=== PATIENT | female | born 1945 | race American Indian/Alaskan Native ===

== ENCOUNTER 2017-10-02 10:05 | Emergency (ER) | payer OTHER ==
--- NOTE | 2017-10-02 12:13 | EDM.PDOC ---
ED HPI GENERAL MEDICAL PROBLEM - General Chief Complaint: Upper Extremity Injury/Pain Stated Complaint: [id number] FALL ON MONDAY HIT HEAD AND HIP Time Seen by Provider: 10/02/17 11:55 Source of Information: Reports: Patient History Limitations: Reports: No Limitations - History of Present Illness INITIAL COMMENTS - FREE TEXT/NARRATIVE: This 72 yo female patient reports to the ED due to a fall in her bathtub on Monday (09/29/17). The patient reports she has pain in the back of her head on the right side, generalized neck pain (difficulties turning head), right shoulder pain (with bruising), right hip/bottock pain (with bruising) and left 5th toe pain with bruising. The patient reports she has been taking Tylenol and ibuprofen with some symptom relief from the ibuprofen. The patient reports she called the [facility] today and was advised to come to the emergency department. Onset Date: 09/29/17 Duration: Constant Location: Reports: Head, Neck, Pelvis (right hip and pelvis), Upper Extremity, Right, Lower Extremity, Left Quality: Reports: Ache, Dull Severity: Moderate Improves with: Reports: Rest Worsens with: Reports: Movement Context: Reports: Other (fall into bathtub) Associated Symptoms: Reports: No Other Symptoms - Related Data Allergies Allergy/AdvReac Type Severity Reaction Status Date / Time No Known Allergies Allergy Verified 10/02/17 10:23 Home Meds: Home Meds Ascorbate Calcium [Vitamin C] 500 mg PO DAILY 10/02/17 [History] Calcium Carbonate [Calcium] 500 mg PO DAILY 10/02/17 [History] Insulin Aspart [Novolog Flexpen] 5 units SQ TID 10/02/17 [History] Insulin Detemir [Levemir] 20 units SQ BEDTIME 10/02/17 [History] Lisinopril 2.5 mg PO DAILY 10/02/17 [History] Multivitamin [Multivitamins] 1 tab PO DAILY 10/02/17 [History] Pravastatin [Pravachol] 20 mg PO BEDTIME 10/02/17 [History] metFORMIN HCl [Metformin HCl] 2,000 mg PO BEDTIME 10/02/17 [History] Past Medical History HEENT History: Reports: Cataract, Glaucoma, Impaired Vision Other HEENT History: beginning of cataracts and glaucoma. 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 Cardiovascular Surgical History: Reports: None GI Surgical History: Reports: Cholecystectomy, EGD Female Surgical History: Reports: None Social & Family History - Tobacco Use Smoking Status *Q: Never Smoker Second Hand Smoke Exposure: No Review of Systems - Review of Systems Review Of Systems: ROS reveals no pertinent complaints other than HPI. ED EXAM, GENERAL - Physical Exam Exam: See Below Exam Limited By: No Limitations General Appearance: Alert, WD/WN, Moderate Distress Eye Exam: Bilateral Eye: EOMI, Normal Inspection, PERRL Ears: Normal External Exam, Normal Canal, Hearing Grossly Normal, Normal TMs Nose: Normal Inspection, Normal Mucosa, No Blood Throat/Mouth: Normal Inspection, Normal Lips, Normal Teeth, Normal Gums, Normal Oropharynx, Normal Voice, No Airway Compromise Head: Atraumatic, Normocephalic Neck: Limited Range of Motion (due to lateral neck pain), Tender Lateral Respiratory/Chest: No Respiratory Distress, Lungs Clear, Normal Breath Sounds, No Accessory Muscle Use, Chest Non-Tender Cardiovascular: Normal Peripheral Pulses, Regular Rate, Rhythm, No Edema, No Gallop, No JVD, No Murmur, No Rub GI/Abdominal: Normal Bowel Sounds, Soft, Non-Tender, No Organomegaly, No Distention, No Abnormal Bruit, No Mass (Female) Exam: Deferred Rectal (Female) Exam: Deferred Back Exam: Normal Inspection, Full Range of Motion, NT Extremities: Arm Pain (right shoulder with bruising ), Leg Pain (right hip ( bruising to the buttocks) and left 5th toe pain (bruising)) Neurological: Alert, Oriented, CN II-XII Intact, Normal Cognition, Normal Gait, Normal Reflexes, No Motor/Sensory Deficits Psychiatric: Normal Affect, Normal Mood Skin Exam: Warm, Dry, Intact, No Rash Lymphatic: No Adenopathy Course - Vital Signs Last Recorded V/S: Last Vital Signs Temp 36.6 C 10/02/17 10:19 Pulse 72 10/02/17 10:19 Resp 16 10/02/17 10:19 BP 128/57 L 10/02/17 10:19 Pulse Ox 99 10/02/17 10:19 - Orders/Labs/Meds Orders: Active Orders 24 hr Category Date Time Status Ibuprofen [Motrin] Med 10/02/17 14:03 Once 400 mg PO ONETIME ONE Departure - Departure Time of Disposition: 14:07 Disposition: Home, Self-Care 01 Condition: Fair Clinical Impression: Fall Qualifiers: Encounter type: initial encounter Qualified Code(s): W19.XXXA - Unspecified fall, initial encounter Neck muscle strain Qualifiers: Encounter type: initial encounter Qualified Code(s): S16.1XXA - Strain of muscle, fascia and tendon at neck level, initial encounter Contusion of hip, right Qualifiers: Encounter type: initial encounter Qualified Code(s): S70.01XA - Contusion of right hip, initial encounter Contusion of right shoulder Qualifiers: Encounter type: initial encounter Qualified Code(s): S40.011A - Contusion of right shoulder, initial encounter Contusion of fifth toe, left Qualifiers: Encounter type: initial encounter Qualified Code(s): S90.122A - Contusion of left lesser toe(s) without damage to nail, initial encounter - Discharge Information *PRESCRIPTION DRUG MONITORING PROGRAM REVIEWED*: Not Applicable *COPY OF PRESCRIPTION DRUG MONITORING REPORT IN PATIENT VICKI: Not Applicable Instructions: Contusion, [id number]-mk-[id number], Cervical Sprain, [id number] Forms: ED Department Discharge Care Plan Goals: The patient was advised of the examination, lab, x-ray and CT results during the visit. The patient was given an oral dose of ibuprofen while in the ED. The patient was encouraged to rest and allow her body to heal. If the patient has any additional symptoms or concerns, the patient should visit her primary care facility or return to the emergency department. - My Orders Last 24 Hours: My Active Orders 10/02/17 14:03 Ibuprofen [Motrin] 400 mg PO ONETIME ONE - Assessment/Plan Last 24 Hours: My Active Orders 10/02/17 14:03 Ibuprofen [Motrin] 400 mg PO ONETIME ONE
--- NOTE | 2017-10-02 12:48 | CR ---
Clinical history: 72-year-old female injured fall. Interpretation: 3 views right shoulder confirm some elevation of the humeral head relative to glenoid scapular suggesting rotator cuff impingement or tear. No juxta-articular rotator cuff tendon calcifi cations. Chronic reactive arthritic changes ipsilateral acromioclavicular joint. No sign of acute right shoulder fracture, acromioclavicular separation or glenohumeral dislocation. Underlying right lung apex is clear. No rib fractures. CONCLUSION: No right shoulder fracture or dislocation.
--- NOTE | 2017-10-02 12:54 | CT ---
CLINICAL HISTORY: 72-year-old 170 pound diabetic female injured in fall. SCAN TECHNIQUE: Volume acquisition of data from an emergency unenhanced CT scan cervical spine obtain ed while the patient was lying supine on the Siemens multislice scanner [place], [place]. All data archived in the PACS system for storage, reformatting axial/sagittal/cor onal planes and study. INTERPRETATION: Multilevel mid/lower cervical disc disease, i.e., interspace narrowing with hypertrophic marginal and uncinate spur formation particularly prominent C4-5, C5-6, C6-C7 levels (osteoarthritis). No sign of prevertebral soft tissue swelling, cervical fracture, spondylolisthesis, or jumped locked facets. Dense facet sclerosis. No fractures of the first 2 cervical ribs. Lung apices clear.
--- NOTE | 2017-10-02 12:55 | CR ---
CLINICAL HISTORY: 72-year-old female injured in fall. INTERPRETATION: AP lateral views left foot confirms early arthritic changes first metatarsophalangeal and all interph alangeal/DIP joints. Pes cavus and small heel spur at the insertion plantar aponeurosis base of the os calcis. (Arteriovascular calcifications in the soft tissues) No sign of left foot fracture or dislocation.
--- NOTE | 2017-10-02 12:56 | CT ---
CLINICAL HISTORY: 72-year-old female injured fall. SCAN TECHNIQUE: Volume acquisition of data from an emergency unenhanced CT scan of the head and brain obtained while the patient was lying supine on the Siemens multislice scanner [place], [place]. All data archived in the PACS system for storage, reformatting axial/sagit ny/coronal planes and study. INTERPRETATION: 1. Uniformly thick bony calvarium without sign of skull fracture, underlying brain contusion or epidu ral/subdural hematoma. 2. Symmetric clear pneumatization of the mastoid and paranasal sinuses. No foreign bodies or fracture s. 3. Symmetric menard-white matter pattern and underlying mirror-image normal ventricular system. Mild at rophy. 4. Some microvascular ischemic changes particularly periventricular white matter right cerebral hemis phere. No encephalomalacia. 5. No sign of acute intracerebral/intraventricular/subarachnoid hemorrhage. 6. Cerebellum and brainstem unremarkable (physiologic midline falcine/pineal and symmetric choroid pl exus calcifications). CONCLUSION: No sign of skull fracture or closed head injury.
--- NOTE | 2017-10-02 12:57 | CR ---
CLINICAL HISTORY: 72-year-old female injured in a fall (right hip pain). INTERPRETATION: AP pelvis/hips and AP/frog lateral views of the right hip confirm chronic severe lowe r lumbar disc disease with associated reactive arthritic change. No sign of pelvic or either hip fracture/dislocation (dense arteriovascular calcifications). Symmetric spacing normal-appearing SI and hip joints without arthritic degenerative change. No foreign bodies. CONCLUSION: Abnormal lower lumbar disc disease. No fracture pelvis or either hip.
[2017-10-02] MEDS ORDERED: Ibuprofen 400 MG Tab PO ONE (14:03)
== END 2017-10-02 14:20 | disposition home or self-care (01) ==
LOC: DL.ED 10:05
DX: S40.011A Contusion of right shoulder, initial encounter (principal); S90.122A Contusion of left lesser toe(s) without damage to nail, initial encounter; S30.0XXA Contusion of lower back and pelvis, initial encounter; S70.01XA Contusion of right hip, initial encounter; E11.9 Type 2 diabetes mellitus without complications; W19.XXXA Unspecified fall, initial encounter; Z79.4 Long term (current) use of insulin
CPT/HCPCS: 70450; 72125; 73030; 73502; 73620; 99284; A9270

== ENCOUNTER 2019-08-03 11:02 | Emergency (ER) | payer BC, OTHER ==
--- NOTE | 2019-08-03 14:48 | EDM.PDOC ---
Scribed by Dai Romero 08/03/19 1223 for Delgado Gracia NP ED HPI GENERAL MEDICAL PROBLEM - General Chief Complaint: Lower Extremity Injury/Pain Stated Complaint: SWOLLEN KNEE/? INFECTION Time Seen by Provider: 08/03/19 11:22 Source of Information: Reports: Patient, RN, RN Notes Reviewed History Limitations: Reports: No Limitations - History of Present Illness INITIAL COMMENTS - FREE TEXT/NARRATIVE: A 74-year-old female who presents to the ER for left knee and ankle evaluation. Patient reports she had a knee injury 1 week ago and was seen at [facility] 4 days ago. Injuries of her knee revealed a fracture in the patella bone. Patient also had a bruise on the affected knee and was treated with Keflex to prevent cellulitis. The knee was also wrapped and patient was told to elevate the knee when sleeping or lying down. She states that she has taken the antibiotics for 2 days and applied Bacitracin ointment. She reports that she does not feel like it is helping but her pain has gotten significantly better. She was given [place] at [facility] but she is not currently taking it as she is not in that much pain. No recent injury, pain or trauma to the knee. She also adds that she has been on her feet for the last couple of days trying to set for her niece. She also reports ankle swelling. No known triggers. No drainage or warmth noted on the left knee. She has already taken antibiotics for 3 days. Onset Date: 07/27/19 Duration: Getting Worse Location: Reports: Lower Extremity, Left Quality: Reports: Ache Severity: Moderate Improves with: Reports: None Worsens with: Reports: None Associated Symptoms: Reports: No Other Symptoms - Related Data Allergies Allergy/AdvReac Type Severity Reaction Status Date / Time No Known Allergies Allergy Verified 08/03/19 11:10 Home Meds: Home Meds Ascorbate Calcium [Vitamin C] 500 mg PO DAILY 10/02/17 [History] Calcium Carbonate [Calcium] 500 mg PO DAILY 10/02/17 [History] Insulin Aspart [Novolog Flexpen] 5 units SQ TID 10/02/17 [History] Insulin Detemir [Levemir] 20 units SQ BEDTIME 10/02/17 [History] Lisinopril 2.5 mg PO DAILY 10/02/17 [History] Multivitamin [Multivitamins] 1 tab PO DAILY 10/02/17 [History] Pravastatin [Pravachol] 20 mg PO BEDTIME 10/02/17 [History] metFORMIN HCl [Metformin HCl] 1,000 mg PO BID 10/02/17 [History] Past Medical History HEENT History: Reports: Cataract, Glaucoma, Impaired Vision Other HEENT History: beginning of cataracts and glaucoma. 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 Cardiovascular Surgical History: Reports: None GI Surgical History: Reports: Cholecystectomy, EGD Female Surgical History: Reports: None Social & Family History - Tobacco Use Smoking Status *Q: Never Smoker Second Hand Smoke Exposure: No - Caffeine Use Caffeine Use: Reports: None - Recreational Drug Use Recreational Drug Use: No Review of Systems - Review of Systems Review Of Systems: Comprehensive ROS is negative, except as noted in HPI. ED EXAM, GENERAL - Physical Exam Exam: See Below Exam Limited By: No Limitations General Appearance: Alert, WD/WN, No Apparent Distress Respiratory/Chest: No Respiratory Distress, Lungs Clear, Normal Breath Sounds, No Accessory Muscle Use, Chest Non-Tender Cardiovascular: Normal Peripheral Pulses, Regular Rate, Rhythm, No Edema, No Gallop, No JVD, No Murmur, No Rub Extremities: Limited Range of Motion, Other (left knee moderately swollen with mild bruising and abrasion noted. No warmth or drainage noted. Mild edema noted on the ankle. ) Neurological: Alert, Oriented, CN II-XII Intact, Normal Cognition, Abnormal Gait Psychiatric: Normal Affect, Normal Mood Skin Exam: Warm, Intact Course - Vital Signs Last Recorded V/S: Last Vital Signs Temp 98.6 F 08/03/19 11:18 Pulse 74 06/27/20 11:18 Resp 16 08/03/19 11:18 BP 154/74 H 08/03/19 11:18 Pulse Ox 96 08/03/19 11:18 - Re-Assessments/Exams Free Text/Narrative Re-Assessment/Exam: 08/03/19 14:46 Reviewed exam and findings with patient. Applied Arnulfo wrap on her knee. Patient reports that is exactly what she was looking for. Encouraged her to finish antibiotics and follow up with Ortho on Monday as scheduled. Patient instructions included on discharge. Symptoms to return to ER reviewed the patient. Departure - Departure Time of Disposition: 11:47 Disposition: Home, Self-Care 01 Condition: Good Clinical Impression: Right knee injury, Cellulitis of right knee - Discharge Information *PRESCRIPTION DRUG MONITORING PROGRAM REVIEWED*: Not Applicable *COPY OF PRESCRIPTION DRUG MONITORING REPORT IN PATIENT VICKI: Not Applicable Instructions: Acute Knee Pain, Adult, Cellulitis, Adult, [id number] Referrals: Nicola Recinos MD [Primary Care Provider] - Forms: ED Department Discharge Additional Instructions: Elevate affected knee when sitting, lying or sleeping. Ice every 20 minutes an hour. Follow up with Ortho on Monday as scheduled. finish antibiotic treatment. Apply ointment on knee as prescribed. Follow up with PCP. Sepsis Event Note (ED) - Evaluation Sepsis Screening Result: No Definite Risk - Focused Exam Vital Signs: Vital Signs Temp Pulse Resp BP Pulse Ox 08/03/19 11:18 98.6 F 74 16 154/74 H 96 I have read and agree with the documentation that has been completed regarding this visit. By signing this record, I attest that the documentation was completed in my physical presence and is an accurate record of the encounter.
== END 2019-08-03 12:03 | disposition home or self-care (01) ==
LOC: DL.ED 11:02
DX: S80.01XA Contusion of right knee, initial encounter (principal); L03.115 Cellulitis of right lower limb; E11.42 Type 2 diabetes mellitus with diabetic polyneuropathy; Z86.73 Personal history of transient ischemic attack (TIA), and cerebral infarction without residual deficits; Z79.4 Long term (current) use of insulin; Z79.899 Other long term (current) drug therapy; X58.XXXA Exposure to other specified factors, initial encounter
CPT/HCPCS: 99283

== ENCOUNTER 2019-10-25 09:44 | Emergency (ER) | payer BC, OTHER ==
[2019-10-25 10:31] LABS: CHLORIDE,CL 99 mmol/L (98-107); SODIUM,NA 136 mmol/L (136-145)
[2019-10-25] MEDS ORDERED: GI Cocktail Oral Solution 30 ML PO ONE (10:45)
--- NOTE | 2019-10-25 10:55 | CR ---
PROCEDURE INFORMATION: Exam: XR Chest, 1 View Exam date and time: 10/25/2019 10:42 AM Age: 74 years old Clinical indication: Chest pain TECHNIQUE: Imaging protocol: XR of the chest Views: 1 view. COMPARISON: No relevant prior studies available. FINDINGS: Lungs: There are no acute infiltrates.There is focal prominent right infrahilar density that may represent pulmonary vascularity. Pleural space: No pleural effusion. No pneumothorax. Heart/Mediastinum: The mediastinal contour is normal. The cardiac structures are normal. Bones/joints: The skeletal structures and soft tissues show no evidence of fracture or other acute processes. IMPRESSION: 1. No acute infiltrates. 2. Focal right infrahilar prominent density. Summation vascular density versus nodule. Recommend PA lateral two-view chest for further characterization.
--- NOTE | 2019-10-25 12:34 | CR ---
EXAMINATION: Chest 2V SEX: Female AGE: 74 years CLINICAL HISTORY: 74-year-old female with SHORTNESS OF BREATH AND CHEST PAIN reported to have "focal right infrahilar density" on AP film. Reevaluate please. (No older films for comparison) Interpretation: Superimposition vascular shadows right hilum i.e. normal variant. Normal cardiac silhouette. No vascular congestion, cephalization of flow, alveolar edema or pleural effusion. No parenchymal lung nodule or mass lesion. No hilar/mediastinal lymphadenopathy (normal tracheobronchial airway). No infiltrate, atelectasis or pneumothorax.
--- NOTE | 2019-10-25 12:51 | EDM.PDOC ---
ED HPI GENERAL MEDICAL PROBLEM - General Chief Complaint: Chest Pain Stated Complaint: CHEST PAIN SHORTNESS OF BREATH Time Seen by Provider: 10/25/19 10:20 Source of Information: Reports: Patient, RN, RN Notes Reviewed History Limitations: Reports: No Limitations - History of Present Illness INITIAL COMMENTS - FREE TEXT/NARRATIVE: Patient presents to ER with complaint of chest pains and shortness of breath for greater than 1 week. Patient states she did have COVID the end of August/beginning of September. She did quarantining in [place], as that is where she recently moved from. States her recently , she recently moved back home, and has had quite a bit of stress. Patient states the pain does not radiate anywhere, just up the chest. Shortness of breath is intermittent. Patient states this happens frequently after eating a meal. Patient denies any other recent illness. States last bowel movement was today, fluctuates between normal and loose stools. Onset: Gradual - Related Data Allergies Allergy/AdvReac Type Severity Reaction Status Date / Time No Known Allergies Allergy Verified 08/03/19 11:10 Home Meds: Home Meds Ascorbate Calcium [Vitamin C] 500 mg PO DAILY 10/02/17 [History] Calcium Carbonate [Calcium] 500 mg PO DAILY 10/02/17 [History] Insulin Aspart [Novolog Flexpen] 5 units SQ TID 10/02/17 [History] Insulin Detemir [Levemir] 20 units SQ BEDTIME 10/02/17 [History] Lisinopril 2.5 mg PO DAILY 10/02/17 [History] Multivitamin [Multivitamins] 1 tab PO DAILY 10/02/17 [History] Pravastatin [Pravachol] 20 mg PO BEDTIME 10/02/17 [History] metFORMIN HCl [Metformin HCl] 1,000 mg PO BID 10/02/17 [History] Past Medical History HEENT History: Reports: Cataract, Glaucoma, Impaired Vision Other HEENT History: beginning of cataracts and glaucoma. 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 Cardiovascular Surgical History: Reports: None GI Surgical History: Reports: Cholecystectomy, EGD Female Surgical History: Reports: None Social & Family History - Caffeine Use Caffeine Use: Reports: None ED ROS GENERAL - Review of Systems Review Of Systems: Comprehensive ROS is negative, except as noted in HPI. ED EXAM, GENERAL - Physical Exam Exam: See Below Exam Limited By: No Limitations General Appearance: Alert, WD/WN, Mild Distress Eye Exam: Bilateral Eye: EOMI, Normal Inspection Ears: Normal External Exam, Hearing Grossly Normal Nose: Normal Inspection Throat/Mouth: Normal Inspection Head: Atraumatic, Normocephalic Neck: Normal Inspection, Supple, Non-Tender, Full Range of Motion Respiratory/Chest: No Respiratory Distress, Lungs Clear, Normal Breath Sounds, No Accessory Muscle Use, Chest Non-Tender, Decreased Breath Sounds Cardiovascular: Normal Peripheral Pulses, Regular Rate, Rhythm, No Edema, No Gallop, No JVD, No Murmur, No Rub Peripheral Pulses: 2+: Radial (L), Radial (R) GI/Abdominal: Normal Bowel Sounds, Soft, Tender (epigastric) (Female) Exam: Deferred Rectal (Female) Exam: Deferred Back Exam: Normal Inspection, Full Range of Motion, NT Extremities: Normal Inspection, Normal Range of Motion, Non-Tender, Normal Capil augustus Refill, No Pedal Edema Neurological: Alert, Oriented, CN II-XII Intact, Normal Cognition, Normal Gait, Normal Reflexes, No Motor/Sensory Deficits Psychiatric: Normal Affect, Normal Mood Skin Exam: Warm, Dry, Intact, Normal Color, No Rash Lymphatic: No Adenopathy Course - Vital Signs Last Recorded V/S: Last Vital Signs Temp 97.1 F 10/25/19 10:10 Pulse 69 10/25/19 10:10 Resp 16 10/25/19 10:10 BP 119/55 L 10/25/19 10:10 Pulse Ox 99 10/25/19 10:10 - Orders/Labs/Meds Orders: Active Orders 24 hr Category Date Time Status EKG Documentation Completion [RC] STAT Care 10/25/19 09:50 Active Labs: Laboratory Tests 10/25/19 10/25/19 10/25/19 Range/Units 10:03 10:03 10:03 WBC 5.8 (5.0-10.0) 10^3/uL RBC 4.64 (4.2-5.4) 10^6/uL Hgb 12.6 (12.0-16.0) g/dL Hct 37.6 (37.0-47.0) % MCV 81.0 (80-100) fL MCH 27.2 (27.0-34.0) pg MCHC 33.5 (33.0-35.0) g/dL Plt Count 248 (150-450) 10^3/uL Neut % (Auto) 64.7 (42.2-75.2) % Lymph % (Auto) 23.6 (20.5-50.1) % [place] % (Auto) 7.4 (2-8) % Eos % (Auto) 3.4 H (1.0-3.0) % Baso % (Auto) 0.9 (0.0-1.0) % PT 9.7 (9.0-12.0) SEC INR 1.0 (0.9-1.2) Sodium 136 (136-145) mmol/L Potassium 4.0 (3.5-5.1) mmol/L Chloride 99 (98-107) mmol/L Carbon Dioxide 30 (21-32) mmol/L Anion Gap 11.0 (7-13) mEq/L BUN 12 (7-18) mg/dL Creatinine 0.76 (0.55-1.02) mg/dL Est Cr Clr Drug Dosing TNP Estimated GFR (MDRD) > 60 BUN/Creatinine Ratio 15.8 (No establ ref range) Glucose 106 H (74-99) mg/dL Calcium 9.2 (8.5-10.1) mg/dL Total Bilirubin 0.5 (0.2-1.0) mg/dL AST 14 L (15-37) U/L ALT 23 (14-59) U/L Alkaline Phosphatase 72 (46-116) U/L Troponin I < 0.017 (0.000-0.056) ng/mL B-Natriuretic Peptide 10 (0-100) pg/ml Total Protein 7.6 (6.4-8.2) g/dL Albumin 3.5 (3.4-5.0) g/dL Globulin 4.1 Albumin/Globulin Ratio 0.9 Meds: Medications Discontinued Medications Generic Name Dose Route Start Last Admin Trade Name Freq PRN Reason Stop Dose Admin Al Hydroxide/Mg Hydroxide 30 ml 10/25/19 10:45 10/25/19 11:18 Gi Cocktail PO 10/25/19 10:46 30 ml ONETIME ONE Administration Departure - Departure Time of Disposition: 12:50 Disposition: Home, Self-Care 01 Reason for Transfer *Q: Other Condition: Good Clinical Impression: GERD (gastroesophageal reflux disease) Qualifiers: Esophagitis presence: esophagitis presence not specified Qualified Code(s): K21.9 - Gastro-esophageal reflux disease without esophagitis Instructions: Indigestion, [id number], Food Choices for Gastroesophageal Reflux Disease, Adult, [id number], Heartburn, Grla-po-[id number] Forms: ED Department Discharge Additional Instructions: RX: Omeprazole Drink plenty of water Follow up with your primary care provider next week Sepsis Event Note (ED) - Evaluation Sepsis Screening Result: No Definite Risk - Focused Exam Vital Signs: Vital Signs Temp Pulse Resp BP Pulse Ox 10/25/19 10:10 97.1 F 69 16 119/55 L 99 - My Orders Last 24 Hours: My Active Orders 10/25/19 09:50 EKG Documentation Completion [RC] STAT - Assessment/Plan Last 24 Hours: My Active Orders 10/25/19 09:50 EKG Documentation Completion [RC] STAT
== END 2019-10-25 12:50 | disposition home or self-care (01) ==
LOC: DL.ED 09:44
DX: K21.9 Gastro-esophageal reflux disease without esophagitis (principal); E11.40 Type 2 diabetes mellitus with diabetic neuropathy, unspecified; Z86.73 Personal history of transient ischemic attack (TIA), and cerebral infarction without residual deficits; Z79.4 Long term (current) use of insulin; Z79.899 Other long term (current) drug therapy
CPT/HCPCS: 36415; 71045; 71046; 80053; 83880; 84484; 85025; 85610; 93005; 99283; A9270; 99285-25

== ENCOUNTER 2019-12-25 20:14 | Emergency (ER) | payer BC, OTHER ==
--- NOTE | 2019-12-25 20:14 | EDM.PDOC ---
ED HPI GENERAL MEDICAL PROBLEM - General Stated Complaint: AMBULANCE Time Seen by Provider: 12/25/19 20:14 Source of Information: Reports: Patient, EMS History Limitations: Reports: No Limitations - History of Present Illness INITIAL COMMENTS - FREE TEXT/NARRATIVE: Recent UTI on Cipro, palpitations tonight. BP elevated for EMS. Patient concerned, Has meals delivered and they sit outside apartment door until she gets home, Noticed something black on her vegetables tonight, did not look like spice. Worried neighbor who does meth may have put something on her food. No fever or cough no nausea vomiting or flank pain. Hx Covid in september. Initial BP elevated 180's by EMS. - Related Data Allergies Allergy/AdvReac Type Severity Reaction Status Date / Time No Known Allergies Allergy Verified 12/25/19 20:30 Home Meds: Home Meds Ascorbate Calcium [Vitamin C] 500 mg PO DAILY 10/02/17 [History] Insulin Aspart [Novolog Flexpen] 5 units SQ TID 10/02/17 [History] Insulin Detemir [Levemir] 20 units SQ BEDTIME 10/02/17 [History] Lisinopril 2.5 mg PO DAILY 10/02/17 [History] Multivitamin [Multivitamins] 1 tab PO DAILY 10/02/17 [History] Pravastatin [Pravachol] 20 mg PO BEDTIME 10/02/17 [History] metFORMIN HCl [Metformin HCl] 500 mg PO DAILY 10/02/17 [History] Ciprofloxacin HCl [Cipro] 500 mg PO BID 12/25/19 [History] Pantoprazole Sodium [Protonix] 40 mg PO DAILY 12/25/19 [History] Past Medical History HEENT History: Reports: Cataract, Glaucoma, Impaired Vision Other HEENT History: beginning of cataracts and glaucoma. 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 Cardiovascular Surgical History: Reports: None GI Surgical History: Reports: Cholecystectomy, EGD Female Surgical History: Reports: None Social & Family History - Family History Family Medical History: No Pertinent Family History - Caffeine Use Caffeine Use: Reports: None ED ROS GENERAL - Review of Systems Review Of Systems: Comprehensive ROS is negative, except as noted in HPI. ED EXAM, GENERAL - Physical Exam Exam: See Below Exam Limited By: No Limitations General Appearance: Alert, Anxious Eye Exam: Bilateral Eye: EOMI Ears: Normal External Exam, Normal TMs Nose: Normal Inspection Throat/Mouth: Normal Inspection Head: Atraumatic, Normocephalic Neck: Normal Inspection Respiratory/Chest: No Respiratory Distress, Lungs Clear Cardiovascular: Normal Peripheral Pulses, Regular Rate, Rhythm, No Edema GI/Abdominal: Normal Bowel Sounds, Soft Neurological: Alert, Oriented, Normal Cognition Psychiatric: Normal Affect, Anxious Skin Exam: Warm, Dry, Intact Course - Vital Signs Last Recorded V/S: Last Vital Signs Temp 97.4 F 12/25/19 20:14 Pulse 87 12/25/19 20:14 Resp 18 12/25/19 20:14 BP 150/67 H 12/25/19 20:14 Pulse Ox 97 12/25/19 20:14 - Orders/Labs/Meds Orders: Active Orders 24 hr Category Date Time Status AMPHETAMINES, CONF, UR Urgent Lab 12/25/19 20:23 Received Labs: Laboratory Tests 12/25/19 12/25/19 12/25/19 Range/Units 20:23 20:23 20:48 WBC 4.8 L (5.0-10.0) 10^3/uL RBC 4.52 (4.2-5.4) 10^6/uL Hgb 12.4 (12.0-16.0) g/dL Hct 36.9 L (37.0-47.0) % MCV 81.6 (80-100) fL MCH 27.4 (27.0-34.0) pg MCHC 33.6 (33.0-35.0) g/dL Plt Count 282 (150-450) 10^3/uL Neut % (Auto) 49.7 (42.2-75.2) % Lymph % (Auto) 32.7 (20.5-50.1) % [place] % (Auto) 7.8 (2-8) % Eos % (Auto) 9.2 H (1.0-3.0) % Baso % (Auto) 0.6 (0.0-1.0) % Sodium (136-145) mmol/L Potassium (3.5-5.1) mmol/L Chloride (98-107) mmol/L Carbon Dioxide (21-32) mmol/L Anion Gap (7-13) mEq/L BUN (7-18) mg/dL Creatinine (0.55-1.02) mg/dL Est Cr Clr Drug Dosing mL/min Estimated GFR (MDRD) BUN/Creatinine Ratio (No establ ref range) Glucose (74-99) mg/dL Calcium (8.5-10.1) mg/dL Total Bilirubin (0.2-1.0) mg/dL AST (15-37) U/L ALT (14-59) U/L Alkaline Phosphatase (46-116) U/L Troponin I (0.000-0.056) ng/mL Total Protein (6.4-8.2) g/dL Albumin (3.4-5.0) g/dL Globulin Albumin/Globulin Ratio Urine Color Light yellow (YELLOW) Urine Appearance Clear (CLEAR) Urine pH 7.0 (5.0-9.0) Ur Specific [place] 1.015 (1.005-1.030) Urine Protein Negative (NEGATIVE) Urine Glucose (UA) 250 H (NEGATIVE) Urine Ketones Negative (NEGATIVE) Urine Occult Blood Trace-intact H (NEGATIVE) Urine Nitrite Negative (NEGATIVE) Urine Bilirubin Negative (NEGATIVE) Urine Urobilinogen 0.2 (0.2-1.0) mg/dL Ur Leukocyte Esterase Trace H (NEGATIVE) Urine RBC 0-5 /HPF Urine WBC 0-5 (0-5/HPF) /HPF Ur Epithelial Cells Rare (NOT SEEN) /HPF Amorphous Sediment Rare (NOT SEEN) /HPF Urine Bacteria Rare (0-FEW/HPF) /HPF Urine Mucus Rare (NOT SEEN) /LPF Urine Opiates Screen Negative (NEGATIVE) Ur Oxycodone Screen Negative (NEGATIVE) Urine Methadone Screen Negative (NEGATIVE) Ur Barbiturates Screen Negative (NEGATIVE) U Tricyclic Antidepress Negative (NEGATIVE) Ur Phencyclidine Scrn Negative (NEGATIVE) Ur Amphetamine Screen Positive H (NEGATIVE) U Methamphetamines Scrn Negative (NEGATIVE) Urine MDMA Screen Negative (NEGATIVE) U Benzodiazepines Scrn Negative (NEGATIVE) Urine Cocaine Screen Negative (NEGATIVE) U Marijuana (THC) Screen Negative (NEGATIVE) 12/25/19 Range/Units 20:48 WBC (5.0-10.0) 10^3/uL RBC (4.2-5.4) 10^6/uL Hgb (12.0-16.0) g/dL Hct (37.0-47.0) % MCV (80-100) fL MCH (27.0-34.0) pg MCHC (33.0-35.0) g/dL Plt Count (150-450) 10^3/uL Neut % (Auto) (42.2-75.2) % Lymph % (Auto) (20.5-50.1) % [place] % (Auto) (2-8) % Eos % (Auto) (1.0-3.0) % Baso % (Auto) (0.0-1.0) % Sodium 133 L (136-145) mmol/L Potassium 3.8 (3.5-5.1) mmol/L Chloride 96 L (98-107) mmol/L Carbon Dioxide 28 (21-32) mmol/L Anion Gap 12.8 (7-13) mEq/L BUN 12 (7-18) mg/dL Creatinine 0.90 (0.55-1.02) mg/dL Est Cr Clr Drug Dosing 50.09 mL/min Estimated GFR (MDRD) > 60 BUN/Creatinine Ratio 13.3 (No establ ref range) Glucose 216 H (74-99) mg/dL Calcium 8.7 (8.5-10.1) mg/dL Total Bilirubin 0.4 (0.2-1.0) mg/dL AST 19 (15-37) U/L ALT 33 (14-59) U/L Alkaline Phosphatase 94 (46-116) U/L Troponin I < 0.017 (0.000-0.056) ng/mL Total Protein 7.2 (6.4-8.2) g/dL Albumin 3.2 L (3.4-5.0) g/dL Globulin 4.0 Albumin/Globulin Ratio 0.80 Urine Color (YELLOW) Urine Appearance (CLEAR) Urine pH (5.0-9.0) Ur Specific [place] (1.005-1.030) Urine Protein (NEGATIVE) Urine Glucose (UA) (NEGATIVE) Urine Ketones (NEGATIVE) Urine Occult Blood (NEGATIVE) Urine Nitrite (NEGATIVE) Urine Bilirubin (NEGATIVE) Urine Urobilinogen (0.2-1.0) mg/dL Ur Leukocyte Esterase (NEGATIVE) Urine RBC /HPF Urine WBC (0-5/HPF) /HPF Ur Epithelial Cells (NOT SEEN) /HPF Amorphous Sediment (NOT SEEN) /HPF Urine Bacteria (0-FEW/HPF) /HPF Urine Mucus (NOT SEEN) /LPF Urine Opiates Screen (NEGATIVE) Ur Oxycodone Screen (NEGATIVE) Urine Methadone Screen (NEGATIVE) Ur Barbiturates Screen (NEGATIVE) U Tricyclic Antidepress (NEGATIVE) Ur Phencyclidine Scrn (NEGATIVE) Ur Amphetamine Screen (NEGATIVE) U Methamphetamines Scrn (NEGATIVE) Urine MDMA Screen (NEGATIVE) U Benzodiazepines Scrn (NEGATIVE) Urine Cocaine Screen (NEGATIVE) U Marijuana (THC) Screen (NEGATIVE) Departure - Departure Time of Disposition: 21:27 Disposition: Home, Self-Care 01 Condition: Good Clinical Impression: Palpitations, Positive urine drug screen Instructions: Palpitations, [id number] Referrals: PCP,None [Primary Care Provider] - Forms: ED Department Discharge Additional Instructions: Light diet continue home medications Discuss concerns regarding laced food with law enforcement do not eat food that has been setting out for hours and unattended Confirmation of urine is pending, follow up if any change in symptoms Sepsis Event Note (ED) - Focused Exam Vital Signs: Vital Signs Temp Pulse Resp BP Pulse Ox 12/25/19 20:14 97.4 F 87 18 150/67 H 97 - My Orders Last 24 Hours: My Active Orders 12/25/19 20:23 AMPHETAMINES, CONF, UR Urgent - Assessment/Plan Last 24 Hours: My Active Orders 12/25/19 20:23 AMPHETAMINES, CONF, UR Urgent
[2019-12-25 21:14] LABS: ANION GAP 12.8 mEq/L (7-13); CHLORIDE,CL 96 mmol/L (98-107); SODIUM,NA 133 mmol/L (136-145)
== END 2019-12-25 21:50 | disposition home or self-care (01) ==
LOC: DL.ED 20:14
DX: R00.2 Palpitations (principal); R82.5 Elevated urine levels of drugs, medicaments and biological substances; E11.40 Type 2 diabetes mellitus with diabetic neuropathy, unspecified; Z86.73 Personal history of transient ischemic attack (TIA), and cerebral infarction without residual deficits; Z79.4 Long term (current) use of insulin; Z79.899 Other long term (current) drug therapy
CPT/HCPCS: 36415; 80053; 80305-QW; 81001; 84484; 85025; 93005; 99285-25; G0480

== ENCOUNTER 2020-03-26 11:28 | Emergency (ER) | payer BC, OTHER ==
[2020-03-26 12:10] LABS: ANION GAP 12.9 mEq/L (7-13); CHLORIDE,CL 100 mmol/L (98-107); SODIUM,NA 138 mmol/L (136-145)
[2020-03-26] MEDS ORDERED: Iopamidol 755 Mg/ML 100 ML Bottle IVPUSH ONE (12:21)
--- NOTE | 2020-03-26 14:19 | CT ---
EXAMINATION: Chest w Cont SEX: Female AGE: 74 years CLINICAL HISTORY: 74-year-old 186 pound diabetic female with history of COVID19 infection and subsequent vaccination (2 shots). Chest pain. Serum D dimer 412. Scan technique: Volume acquisition of data from the chest (bony thorax, lungs and mediastinum) obtained during the intravenous administration of 69 cc nonionic Isovue 370 contrast at 4 cc/s via injector (PE protocol) while patient was lying on on the Siemens multislice scanner [place], [place]. All data archived in the PACS system for storage, reformatting axial/sagittal/coronal planes and study (lung/mediastinal/vascular and bone windows). Interpretation: Negative exam. 1. No intraluminal filling defects or thrombus identified in the pulmonary artery circulation. 2. No focal lobar oligemia, atelectasis/collapse or peripheral pleural-based wedge shaped infarcts ([place] sign). 3. No pleural effusions. 4. Normal cardiac silhouette. No pericardial effusion, pulmonary vascular congestion, cephalization flow, alveolar edema. 5. No lung mass or hilar/mediastinal lymphadenopathy. 6. Calcifications normal caliber thoracic aorta. Osteoporosis. Multilevel disc disease and hypertrophic spondylosis. 7. No alveolar consolidation, air bronchograms, or peripheral interstitial "groundglass" lung densities. 8. No pneumothorax or pneumomediastinum. Midline tracheobronchial airway unremarkable. 9. Unenhanced upper abdominal viscera unremarkable. Diverticulosis both flexures of the colon.
--- NOTE | 2020-03-26 14:23 | EDM.PDOC ---
ED HPI GENERAL MEDICAL PROBLEM - General Chief Complaint: Chest Pain Stated Complaint: AMBULANCE Time Seen by Provider: 03/26/20 11:30 Source of Information: Reports: Patient, EMS, EMS Notes Reviewed, RN, RN Notes Reviewed History Limitations: Reports: No Limitations - History of Present Illness INITIAL COMMENTS - FREE TEXT/NARRATIVE: Patient is a 74-year-old female who presents to ER per [facility] from [facility] with complaint of chest pain that began at 6 AM. Patient states the pain began in the left shoulder and later went down into the left side of the chest. She was at work, did leave work and went to the clinic. She states it started with the pain in the left shoulder, increased chest heaviness, and some increased shortness of breath. Patient states she did have Covid in August, and has also had 2 vaccinations for Covid. Patient was somewhat hypertensive initially 170s over 80s, and sometimes would go down to 136/70. Patient is 98% on room air, and afebrile. [facility] reports some mild respiratory distress. Upon arrival to the ER patient denies respiratory distress. Patient appears to be breathing adequately. She states she does have some issues with anxiety. States she also has some bladder discomfort, which she has had for some time. Last had a UTI in February. Patient has history of DM 2 and hypertension. Onset: Today, Sudden - Related Data Allergies Allergy/AdvReac Type Severity Reaction Status Date / Time No Known Allergies Allergy Verified 03/26/20 11:10 Home Meds: Home Meds Ascorbate Calcium [Vitamin C] 500 mg PO DAILY 10/02/17 [History] Insulin Aspart [Novolog Flexpen] 5 units SQ TID 10/02/17 [History] Insulin Detemir [Levemir] 20 units SQ BEDTIME 10/02/17 [History] Lisinopril 2.5 mg PO DAILY 10/02/17 [History] Multivitamin [Multivitamins] 1 tab PO DAILY 10/02/17 [History] Pravastatin [Pravachol] 20 mg PO BEDTIME 10/02/17 [History] metFORMIN HCl [Metformin HCl] 500 mg PO DAILY 10/02/17 [History] Ciprofloxacin HCl [Cipro] 500 mg PO BID 12/25/19 [History] Pantoprazole Sodium [Protonix] 40 mg PO DAILY 12/25/19 [History] Past Medical History HEENT History: Reports: Cataract, Glaucoma, Impaired Vision Other HEENT History: beginning of cataracts and glaucoma. 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 Cardiovascular Surgical History: Reports: None GI Surgical History: Reports: Cholecystectomy, EGD Female Surgical History: Reports: None Social & Family History - Family History Family Medical History: No Pertinent Family History - Tobacco Use Tobacco Use Status *Q: Never Tobacco User - Caffeine Use Caffeine Use: Reports: Coffee - Recreational Drug Use Recreational Drug Use: No ED ROS GENERAL - Review of Systems Review Of Systems: Comprehensive ROS is negative, except as noted in HPI. ED EXAM, GENERAL - Physical Exam Exam: See Below Exam Limited By: No Limitations General Appearance: Alert, WD/WN, No Apparent Distress, Anxious Eye Exam: Bilateral Eye: EOMI, Normal Inspection Ears: Normal External Exam, Hearing Grossly Normal Nose: Normal Inspection Throat/Mouth: Normal Inspection, Normal Lips, Normal Teeth, Normal Gums, Normal Oropharynx, Normal Voice, No Airway Compromise Head: Atraumatic, Normocephalic Neck: Normal Inspection, Supple, Non-Tender, Full Range of Motion Respiratory/Chest: No Respiratory Distress, Lungs Clear, Normal Breath Sounds, No Accessory Muscle Use, Chest Non-Tender Cardiovascular: Normal Peripheral Pulses, Regular Rate, Rhythm, No Edema, No Gallop, No JVD, No Murmur, No Rub Peripheral Pulses: 2+: Radial (L), Radial (R) GI/Abdominal: Normal Bowel Sounds, Soft, Non-Tender (Female) Exam: Deferred Rectal (Female) Exam: Deferred Back Exam: Normal Inspection, Full Range of Motion, NT Extremities: Normal Inspection, Normal Range of Motion, Non-Tender, No Pedal Edema, Normal Capillary Refill, Limited Range of Motion (Right shoulder) Neurological: Alert, Oriented, CN II-XII Intact, Normal Cognition, Normal Gait, Normal Reflexes, No Motor/Sensory Deficits Psychiatric: Normal Affect, Normal Mood, Anxious Skin Exam: Warm, Dry, Intact, Normal Color, No Rash Lymphatic: No Adenopathy Course - Vital Signs Last Recorded V/S: Last Vital Signs Temp 97.6 F 03/26/20 11:11 Pulse 72 03/26/20 11:11 Resp 11 L 03/26/20 11:11 BP 157/69 H 03/26/20 11:11 Pulse Ox 97 03/26/20 11:11 - Orders/Labs/Meds Orders: Active Orders 24 hr Category Date Time Status EKG Documentation Completion [RC] STAT Care 03/26/20 10:49 Active EKG Documentation Completion [RC] STAT Care 03/26/20 14:21 Active Labs: Laboratory Tests 03/26/20 03/26/20 03/26/20 Range/Units 11:07 11:07 11:07 PT 9.4 (9.0-12.0) SEC INR 1.0 (0.9-1.2) D-Dimer, Quantitative 412 H (0-400) ng/mL Sodium (136-145) mmol/L Potassium (3.5-5.1) mmol/L Chloride (98-107) mmol/L Carbon Dioxide (21-32) mmol/L Anion Gap (7-13) mEq/L BUN (7-18) mg/dL Creatinine (0.55-1.02) mg/dL Est Cr Clr Drug Dosing mL/min Estimated GFR (MDRD) BUN/Creatinine Ratio (No establ ref range) Glucose (74-99) mg/dL Calcium (8.5-10.1) mg/dL Total Bilirubin (0.2-1.0) mg/dL AST (15-37) U/L ALT (14-59) U/L Alkaline Phosphatase (46-116) U/L Troponin I < 0.017 (0.000-0.056) ng/mL B-Natriuretic Peptide 22 (0-100) pg/ml Total Protein (6.4-8.2) g/dL Albumin (3.4-5.0) g/dL Globulin Albumin/Globulin Ratio 03/26/20 03/26/20 Range/Units 11:07 14:29 PT (9.0-12.0) SEC INR (0.9-1.2) D-Dimer, Quantitative (0-400) ng/mL Sodium 138 (136-145) mmol/L Potassium 3.9 (3.5-5.1) mmol/L Chloride 100 (98-107) mmol/L Carbon Dioxide 29 (21-32) mmol/L Anion Gap 12.9 (7-13) mEq/L BUN 15 (7-18) mg/dL Creatinine 0.67 (0.55-1.02) mg/dL Est Cr Clr Drug Dosing 67.29 mL/min Estimated GFR (MDRD) > 60 BUN/Creatinine Ratio 22.4 (No establ ref range) Glucose 142 H (74-99) mg/dL Calcium 9.8 (8.5-10.1) mg/dL Total Bilirubin 0.4 (0.2-1.0) mg/dL AST 14 L (15-37) U/L ALT 31 (14-59) U/L Alkaline Phosphatase 70 (46-116) U/L Troponin I < 0.017 (0.000-0.056) ng/mL B-Natriuretic Peptide (0-100) pg/ml Total Protein 7.7 (6.4-8.2) g/dL Albumin 3.5 (3.4-5.0) g/dL Globulin 4.2 Albumin/Globulin Ratio 0.8 Meds: Medications Discontinued Medications Generic Name Dose Route Start Last Admin Trade Name Freq PRN Reason Stop Dose Admin Iopamidol 100 ml 03/26/20 12:21 03/26/20 12:54 Isovue-370 (76%) IVPUSH 03/26/20 12:22 69 ml ONETIME ONE Administration - Radiology Interpretation Free Text/Narrative:: Chest x-ray completed at [facility]: No evidence of acute cardiopulmonary disease. Chest CT with contrast: No intraluminal filling defects or thrombus identified in the pulmonary artery circulation. No focal lumbar Hugo ischemia, atelectasis/collapse or peripheral pleural-based wedge-shaped infarcts, [place] sign. No pleural effusions. Normal cardiac silhouette. No pericardial effusion, pulmonary vascular congestion, cephalization of flow, alveolar edema. No lung mass or hilar/mediastinal lymphadenopathy. Calcifications normal caliber thoracic aorta. Osteoporosis. Negative exam See radiologist report Departure - Departure Time of Disposition: 15:13 Disposition: Home, Self-Care 01 Reason for Transfer *Q: Other Condition: Good Clinical Impression: Nonspecific chest pain UTI (urinary tract infection) Qualifiers: Urinary tract infection type: acute cystitis Hematuria presence: without hematuria Qualified Code(s): N30.00 - Acute cystitis without hematuria Instructions: Urinary Tract Infection, Adult, [id number], Nonspecific Chest Pain, Adult, [id number] Forms: ED Department Discharge Additional Instructions: Follow-up at [facility] for possible referral to cardiology May use Tylenol as directed for pain Return to the ER with any worsening of symptoms Rx: Macrobid Sepsis Event Note (ED) - Evaluation Sepsis Screening Result: No Definite Risk - Focused Exam Vital Signs: Vital Signs Temp Pulse Resp BP Pulse Ox 03/26/20 11:11 97.6 F 72 11 L 157/69 H 97 - My Orders Last 24 Hours: My Active Orders 03/26/20 10:49 EKG Documentation Completion [RC] STAT 03/26/20 14:21 EKG Documentation Completion [RC] STAT - Assessment/Plan Last 24 Hours: My Active Orders 03/26/20 10:49 EKG Documentation Completion [RC] STAT 03/26/20 14:21 EKG Documentation Completion [RC] STAT
[2020-03-26] MEDS ORDERED: Nitrofurantoin Monohydrate/Macrocrystalline 100 MG Cap PO ONE (15:17)
== END 2020-03-26 15:25 | disposition home or self-care (01) ==
LOC: DL.ED 11:28
DX: R07.9 Chest pain, unspecified (principal); N30.00 Acute cystitis without hematuria; E11.42 Type 2 diabetes mellitus with diabetic polyneuropathy; Z86.73 Personal history of transient ischemic attack (TIA), and cerebral infarction without residual deficits; Z79.4 Long term (current) use of insulin; Z79.899 Other long term (current) drug therapy
CPT/HCPCS: 36415; 71260; 80053; 83880; 84484; 85379; 85610; 93005; 99285; A9270; Q9967; 99283

== ENCOUNTER 2020-10-26 20:48 | Emergency (ER) | payer BC, OTHER ==
[2020-10-26] MEDS ORDERED: Nitroglycerin 0.4 MG Tab.SL SL ONE (21:15)
[2020-10-26] MEDS ORDERED: Aspirin 81 MG Tab.Chew PO ONE (21:15)
--- NOTE | 2020-10-26 21:51 | CR ---
PROCEDURE INFORMATION: Exam: XR Chest Exam date and time: 10/26/2020 9:20 PM Age: 75 years old Clinical indication: Pain; Left-sided; Additional info: Chest pain TECHNIQUE: Imaging protocol: XR of the chest. Views: 1 view. COMPARISON: CR Chest 2V 10/25/2019 11:48 AM FINDINGS: Lungs: Unremarkable. No consolidation. Pleural spaces: Unremarkable. No pleural effusion. No pneumothorax. Heart/Mediastinum: Unremarkable. No cardiomegaly. Bones/joints: Unremarkable. IMPRESSION: No acute findings.
[2020-10-26 22:05] LABS: ANION GAP 12.7 mEq/L (7-13)
--- NOTE | 2020-10-27 00:23 | EDM.PDOC ---
ED HPI GENERAL MEDICAL PROBLEM - General Chief Complaint: Chest Pain Stated Complaint: AMBULANCE Time Seen by Provider: 10/26/20 21:20 Source of Information: Reports: Patient History Limitations: Reports: No Limitations - History of Present Illness INITIAL COMMENTS - FREE TEXT/NARRATIVE: Onset chest pain 630, [place] SOB. Prior was hurrying sweeping and cleaning porch. Went to eat at local food place and felt ches tightness and weak like when blood sugars low. Did not have meter to check Blood sugar. Feels anxious and pain may just be from that. Worse with movement. Non smoker, no cough. Points midsternal. sternal Pain Score (Numeric/FACES): 4 - Related Data Allergies Allergy/AdvReac Type Severity Reaction Status Date / Time No Known Allergies Allergy Verified 10/26/20 21:24 Home Meds: Home Meds Ascorbate Calcium [Vitamin C] 500 mg PO DAILY 10/02/17 [History] Insulin Aspart [Novolog Flexpen] 5 units SQ TID 10/02/17 [History] Insulin Detemir [Levemir] 10 units SQ BEDTIME 10/02/17 [History] Lisinopril 2.5 mg PO DAILY 10/02/17 [History] Multivitamin [Multivitamins] 1 tab PO DAILY 10/02/17 [History] Pravastatin [Pravachol] 20 mg PO BEDTIME 10/02/17 [History] Pantoprazole Sodium [Protonix] 40 mg PO DAILY 12/25/19 [History] Semaglutide [Ozempic] 0.5 mg SQ Q7D 10/26/20 [History] Past Medical History HEENT History: Reports: Cataract, Glaucoma, Impaired Vision Other HEENT History: beginning of cataracts and glaucoma. 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 Cardiovascular Surgical History: Reports: None GI Surgical History: Reports: Cholecystectomy, EGD Female Surgical History: Reports: None Social & Family History - Family History Family Medical History: No Pertinent Family History - Tobacco Use Tobacco Use Status *Q: Never Tobacco User - Caffeine Use Caffeine Use: Reports: Coffee - Recreational Drug Use Recreational Drug Use: No ED ROS GENERAL - Review of Systems Review Of Systems: Comprehensive ROS is negative, except as noted in HPI. ED EXAM, GENERAL - Physical Exam Exam: See Below Exam Limited By: No Limitations General Appearance: Alert, Anxious Eye Exam: Bilateral Eye: EOMI Ears: Normal External Exam Nose: Normal Inspection, Normal Mucosa Throat/Mouth: Normal Inspection, Normal Lips, Normal Voice, No Airway Compromise Head: Atraumatic, Normocephalic Neck: Normal Inspection, Non-Tender Respiratory/Chest: No Respiratory Distress, Lungs Clear, Normal Breath Sounds Cardiovascular: Normal Peripheral Pulses, Regular Rate, Rhythm, No Edema GI/Abdominal: Normal Bowel Sounds, Soft, Non-Tender Back Exam: Normal Inspection Extremities: Normal Inspection Neurological: Alert, Oriented, Normal Cognition Psychiatric: Anxious Skin Exam: Warm, Dry, Intact, Normal Color #1 Interpretation EKG Date: 10/26/20 Time: 21:13 Rhythm: NSR Rate (Beats/Min): 83 [place]: Normal P-Wave: Present QRS: Normal ST-T: Normal Comparison: NA - No Prior EKG Course - Vital Signs Last Recorded V/S: Last Vital Signs Temp 97.8 F 10/26/20 21:16 Pulse 91 10/26/20 21:16 Resp 13 10/26/20 21:16 BP 116/58 L 10/26/20 21:35 Pulse Ox 97 10/26/20 21:16 - Orders/Labs/Meds Labs: Laboratory Tests 10/26/20 10/26/20 10/26/20 Range/Units 20:56 21:36 21:36 WBC 5.8 (5.0-10.0) 10^3/uL RBC 4.15 L (4.2-5.4) 10^6/uL Hgb 11.4 L (12.0-16.0) g/dL Hct 33.8 L (37.0-47.0) % MCV 81.4 (80-100) fL MCH 27.5 (27.0-34.0) pg MCHC 33.7 (33.0-35.0) g/dL Plt Count 254 (150-450) 10^3/uL Neut % (Auto) 62.3 (42.2-75.2) % Lymph % (Auto) 23.0 (20.5-50.1) % [place] % (Auto) 7.3 (2-8) % Eos % (Auto) 7.1 H (1.0-3.0) % Baso % (Auto) 0.3 (0.0-1.0) % PT 10.0 (9.0-12.0) SEC INR 1.0 (0.9-1.2) D-Dimer, Quantitative 360 (0-400) ng/mL Sodium (136-145) mmol/L Potassium (3.5-5.1) mmol/L Chloride (98-107) mmol/L Carbon Dioxide (21-32) mmol/L Anion Gap (7-13) mEq/L BUN (7-18) mg/dL Creatinine (0.55-1.02) mg/dL Est Cr Clr Drug Dosing mL/min Estimated GFR (MDRD) BUN/Creatinine Ratio (No establ ref range) Glucose (70-99) mg/dL Lactic Acid (0.4-2.0) mmol/L Calcium (8.5-10.1) mg/dL Magnesium (1.8-2.4) mg/dL Total Bilirubin (0.2-1.0) mg/dL AST (15-37) U/L ALT (14-59) U/L Alkaline Phosphatase (46-116) U/L Troponin I High Sens (<=51) pg/mL Total Protein (6.4-8.2) g/dL Albumin (3.4-5.0) g/dL Globulin Albumin/Globulin Ratio Urine Color Yellow (YELLOW) Urine Appearance Clear (CLEAR) Urine pH 7.0 (5.0-9.0) Ur Specific [place] 1.015 (1.005-1.030) Urine Protein 30 H (NEGATIVE) Urine Glucose (UA) Negative (NEGATIVE) Urine Ketones Negative (NEGATIVE) Urine Occult Blood Negative (NEGATIVE) Urine Nitrite Negative (NEGATIVE) Urine Bilirubin Negative (NEGATIVE) Urine Urobilinogen 0.2 (0.2-1.0) mg/dL Ur Leukocyte Esterase Negative (NEGATIVE) Urine RBC 0-5 (0-5) /HPF Urine WBC 0-5 (0-5/HPF) /HPF Ur Epithelial Cells Rare (NOT SEEN) /HPF Amorphous Sediment Few (NOT SEEN) /HPF Urine Bacteria Rare (0-FEW/HPF) /HPF Urine Mucus Not seen (NOT SEEN) /LPF 10/26/20 10/26/20 10/26/20 Range/Units 21:36 21:36 23:25 WBC (5.0-10.0) 10^3/uL RBC (4.2-5.4) 10^6/uL Hgb (12.0-16.0) g/dL Hct (37.0-47.0) % MCV (80-100) fL MCH (27.0-34.0) pg MCHC (33.0-35.0) g/dL Plt Count (150-450) 10^3/uL Neut % (Auto) (42.2-75.2) % Lymph % (Auto) (20.5-50.1) % [place] % (Auto) (2-8) % Eos % (Auto) (1.0-3.0) % Baso % (Auto) (0.0-1.0) % PT (9.0-12.0) SEC INR (0.9-1.2) D-Dimer, Quantitative (0-400) ng/mL Sodium 134 L (136-145) mmol/L Potassium 3.7 (3.5-5.1) mmol/L Chloride 99 (98-107) mmol/L Carbon Dioxide 26 (21-32) mmol/L Anion Gap 12.7 (7-13) mEq/L BUN 12 (7-18) mg/dL Creatinine 1.12 H (0.55-1.02) mg/dL Est Cr Clr Drug Dosing 40.45 mL/min Estimated GFR (MDRD) 48 BUN/Creatinine Ratio 10.7 (No establ ref range) Glucose 187 H (70-99) mg/dL Lactic Acid 3.1 H* (0.4-2.0) mmol/L Calcium 8.7 (8.5-10.1) mg/dL Magnesium 1.5 L (1.8-2.4) mg/dL Total Bilirubin 0.4 (0.2-1.0) mg/dL AST 13 L (15-37) U/L ALT 22 (14-59) U/L Alkaline Phosphatase 49 (46-116) U/L Troponin I High Sens 4 5 (<=51) pg/mL Total Protein 7.1 (6.4-8.2) g/dL Albumin 3.2 L (3.4-5.0) g/dL Globulin 3.9 Albumin/Globulin Ratio 0.82 Urine Color (YELLOW) Urine Appearance (CLEAR) Urine pH (5.0-9.0) Ur Specific [place] (1.005-1.030) Urine Protein (NEGATIVE) Urine Glucose (UA) (NEGATIVE) Urine Ketones (NEGATIVE) Urine Occult Blood (NEGATIVE) Urine Nitrite (NEGATIVE) Urine Bilirubin (NEGATIVE) Urine Urobilinogen (0.2-1.0) mg/dL Ur Leukocyte Esterase (NEGATIVE) Urine RBC (0-5) /HPF Urine WBC (0-5/HPF) /HPF Ur Epithelial Cells (NOT SEEN) /HPF Amorphous Sediment (NOT SEEN) /HPF Urine Bacteria (0-FEW/HPF) /HPF Urine Mucus (NOT SEEN) /LPF Meds: Medications Discontinued Medications Generic Name Dose Route Start Last Admin Trade Name Freq PRN Reason Stop Dose Admin Aspirin 324 mg 10/26/20 21:15 10/26/20 21:34 Aspirin 81 Mg Tab.Chew PO 10/26/20 21:16 324 mg ONETIME ONE Administration Nitroglycerin 0.4 mg 10/26/20 21:15 10/26/20 21:35 Nitroglycerin 0.4 Mg Tab.Sl SL 10/26/20 21:16 0.4 mg ONETIME ONE Administration - Re-Assessments/Exams Free Text/Narrative Re-Assessment/Exam: 10/27/20 05:32Pain decreased on arrival, 2-3/10, no nausea no sweating, 1 nitro with complete relief. Repeat troponin negative. Continued pain free, no symptoms. Departure - Departure Time of Disposition: 00:21 Disposition: Home, Self-Care 01 Condition: Good Clinical Impression: Non-cardiac chest pain Referrals: PCP,None [Primary Care Provider] - Forms: ED Department Discharge Additional Instructions: rest activity as tolerated clinic follow up this week to recheck urgent follow upif symptoms worsen Sepsis Event Note (ED) - Evaluation Sepsis Screening Result: No Definite Risk - Focused Exam Vital Signs: Vital Signs Temp Pulse Resp BP BP Pulse Ox 10/26/20 21:35 116/58 L 10/26/20 21:16 97.8 F 91 13 139/69 97
== END 2020-10-27 00:33 | disposition home or self-care (01) ==
LOC: DL.ED 20:48
DX: R07.89 Other chest pain (principal); E11.40 Type 2 diabetes mellitus with diabetic neuropathy, unspecified; Z79.4 Long term (current) use of insulin; Z79.899 Other long term (current) drug therapy
CPT/HCPCS: 36415; 71045; 80053; 81001; 83605; 83735; 84484; 85025; 85379; 85610; 93005; 99285; A9270; 93010; 99284

== ENCOUNTER 2021-01-07 13:52 | Emergency (ER) | payer BC, OTHER ==
--- NOTE | 2021-01-07 13:57 | EDM.PDOC ---
ED HPI GENERAL MEDICAL PROBLEM - General Chief Complaint: General Stated Complaint: AMBULANCE Time Seen by Provider: 01/07/21 13:57 Source of Information: Reports: Patient, EMS, Old Records, RN, RN Notes Reviewed History Limitations: Reports: No Limitations - History of Present Illness INITIAL COMMENTS - FREE TEXT/NARRATIVE: Pt arrives to ER by ambulance with report of sudden onset of lightheadedness, palpitations, and anxiety while at work today at approx. 1300H[employer]. Pt admits to being under a lot of stress at work due to her boss trying to make changes in work place. Pt states she has had similar symptoms from anxiety attacks in the past. Pt states she was dizzy when standing up, blurred vision, BP 180/85 and 156/72 when rechecked. EMS reported pt's heart rate was 74, and 98% oxygen saturation on room air. Pt denies fever, cough, SOB, chest pain, N/V, edema, or syncope. Pt states she is feeling much less anxious since arriving to the ER, and no long has palpitations. Pt is no certain that she had a panic attack. Onset: Today, Sudden Duration: Resolved Prior to Arrival Location: Reports: Generalized Improves with: Reports: None Worsens with: Reports: Other (Stress) Associated Symptoms: Reports: No Other Symptoms - Related Data Allergies Allergy/AdvReac Type Severity Reaction Status Date / Time No Known Allergies Allergy Verified 10/26/20 21:24 Home Meds: Home Meds Ascorbate Calcium [Vitamin C] 500 mg PO DAILY 10/02/17 [History] Lisinopril 2.5 mg PO DAILY 10/02/17 [History] Multivitamin [Multivitamins] 1 tab PO DAILY 10/02/17 [History] Pravastatin [Pravachol] 20 mg PO BEDTIME 10/02/17 [History] Pantoprazole Sodium [Protonix] 40 mg PO DAILY 12/25/19 [History] Semaglutide [Ozempic] 0.5 mg SQ Q7D 10/26/20 [History] Past Medical History HEENT History: Reports: Cataract, Glaucoma, Impaired Vision Other HEENT History: beginning of cataracts and glaucoma. 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 Cardiovascular Surgical History: Reports: None GI Surgical History: Reports: Cholecystectomy, EGD Female Surgical History: Reports: None Social & Family History - Family History Family Medical History: No Pertinent Family History - Caffeine Use Caffeine Use: Reports: None - Living Situation & Occupation Occupation: Employed ED ROS GENERAL - Review of Systems Review Of Systems: Comprehensive ROS is negative, except as noted in HPI. ED EXAM, GENERAL - Physical Exam Exam: See Below Exam Limited By: No Limitations General Appearance: Alert, WD/WN, No Apparent Distress, Anxious Eye Exam: Bilateral Eye: EOMI, Normal Inspection, PERRL Nose: Normal Inspection Throat/Mouth: Normal Lips, Normal Voice, No Airway Compromise, Other (Dry oral mucosa) Head: Atraumatic, Normocephalic Neck: Normal Inspection, Supple, Non-Tender, Full Range of Motion Respiratory/Chest: No Respiratory Distress, Lungs Clear, Normal Breath Sounds, No Accessory Muscle Use, Chest Non-Tender Cardiovascular: Normal Peripheral Pulses, Regular Rate, Rhythm, No Edema, No JVD GI/Abdominal: Normal Bowel Sounds, Soft, Non-Tender, No Organomegaly, No Distention, No Abnormal Bruit, No Mass Back Exam: Normal Inspection Extremities: Normal Inspection, Normal Range of Motion, Non-Tender, Normal Capillary Refill, No Pedal Edema Neurological: Alert, Oriented, CN II-XII Intact, Normal Cognition, No Motor/Sensory Deficits Psychiatric: Normal Affect, Anxious Skin Exam: Warm, Dry, Intact, Normal Color, No Rash #1 Interpretation EKG Date: 01/07/21 Time: 14:03 Rhythm: Other (SR) Rate (Beats/Min): 71 [place]: LAD-Left [place] Deviation (Borderline) P-Wave: Present QRS: Normal ST-T: Normal QT: Normal Comparison: No Change Course - Vital Signs Last Recorded V/S: Last Vital Signs Temp 96.9 F 01/07/21 14:15 Pulse 78 01/07/21 14:30 Resp 17 01/07/21 14:30 BP 131/61 01/07/21 14:30 Pulse Ox 98 01/07/21 14:30 Not orthostatic, see RN entry of orthostatic VS. - Orders/Labs/Meds Orders: Active Orders 24 hr Category Date Time Status Blood Glucose Check, Bedside [RC] ONETIME Care 01/07/21 13:57 Active Peripheral IV Care [RC] . DIRECTED Care 01/07/21 13:59 Active CULTURE URINE [RM] Stat Lab 01/07/21 15:25 Received UA W/MICROSCOPIC [URIN] Stat Lab 01/07/21 15:25 Results Sodium Chloride 0.9% [Saline Flush] Med 01/07/21 13:59 Active 10 ml FLUSH ASDIRECTED PRN Peripheral IV Insertion Adult [OM.PC] Stat Oth 01/07/21 13:58 Ordered Medication Orders Sodium Chloride (Sodium Chloride 0.9% 10 Ml Syringe) 10 ml FLUSH ASDIRECTED PRN PRN Reason: Keep Vein Open Labs: Laboratory Tests 01/07/21 01/07/21 01/07/21 Range/Units 14:00 14:02 14:02 WBC 5.0 (5.0-10.0) 10^3/uL RBC 4.43 (4.2-5.4) 10^6/uL Hgb 12.3 (12.0-16.0) g/dL Hct 36.8 L (37.0-47.0) % MCV 83.1 (80-100) fL MCH 27.8 (27.0-34.0) pg MCHC 33.4 (33.0-35.0) g/dL Plt Count 255 (150-450) 10^3/uL Neut % (Auto) 64.9 (42.2-75.2) % Lymph % (Auto) 23.7 (20.5-50.1) % [place] % (Auto) 6.2 (2-8) % Eos % (Auto) 4.8 H (1.0-3.0) % Baso % (Auto) 0.4 (0.0-1.0) % Sodium 135 L (136-145) mmol/L Potassium 3.9 (3.5-5.1) mmol/L Chloride 97 L (98-107) mmol/L Carbon Dioxide 29 (21-32) mmol/L Anion Gap 12.9 (7-13) mEq/L BUN 12 (7-18) mg/dL Creatinine 0.85 (0.55-1.02) mg/dL Est Cr Clr Drug Dosing TNP Estimated GFR (MDRD) > 60 BUN/Creatinine Ratio 14.1 (No establ ref range) Glucose 113 H (70-99) mg/dL POC Glucose 118 H (70-99) mg/dL Calcium 9.0 (8.5-10.1) mg/dL Total Bilirubin 0.4 (0.2-1.0) mg/dL AST 14 L (15-37) U/L ALT 24 (14-59) U/L Alkaline Phosphatase 56 (46-116) U/L Troponin I High Sens 5 (<=51) pg/mL Total Protein 7.6 (6.4-8.2) g/dL Albumin 3.6 (3.4-5.0) g/dL Globulin 4.0 Albumin/Globulin Ratio 0.9 Urine Color (YELLOW) Urine Appearance (CLEAR) Urine pH (5.0-9.0) Ur Specific [place] (1.005-1.030) Urine Protein (NEGATIVE) Urine Glucose (UA) (NEGATIVE) Urine Ketones (NEGATIVE) Urine Occult Blood (NEGATIVE) Urine Nitrite (NEGATIVE) Urine Bilirubin (NEGATIVE) Urine Urobilinogen (0.2-1.0) mg/dL Ur Leukocyte Esterase (NEGATIVE) 01/07/21 Range/Units 15:25 WBC (5.0-10.0) 10^3/uL RBC (4.2-5.4) 10^6/uL Hgb (12.0-16.0) g/dL Hct (37.0-47.0) % MCV (80-100) fL MCH (27.0-34.0) pg MCHC (33.0-35.0) g/dL Plt Count (150-450) 10^3/uL Neut % (Auto) (42.2-75.2) % Lymph % (Auto) (20.5-50.1) % [place] % (Auto) (2-8) % Eos % (Auto) (1.0-3.0) % Baso % (Auto) (0.0-1.0) % Sodium (136-145) mmol/L Potassium (3.5-5.1) mmol/L Chloride (98-107) mmol/L Carbon Dioxide (21-32) mmol/L Anion Gap (7-13) mEq/L BUN (7-18) mg/dL Creatinine (0.55-1.02) mg/dL Est Cr Clr Drug Dosing Estimated GFR (MDRD) BUN/Creatinine Ratio (No establ ref range) Glucose (70-99) mg/dL POC Glucose (70-99) mg/dL Calcium (8.5-10.1) mg/dL Total Bilirubin (0.2-1.0) mg/dL AST (15-37) U/L ALT (14-59) U/L Alkaline Phosphatase (46-116) U/L Troponin I High Sens (<=51) pg/mL Total Protein (6.4-8.2) g/dL Albumin (3.4-5.0) g/dL Globulin Albumin/Globulin Ratio Urine Color Yellow (YELLOW) Urine Appearance Clear (CLEAR) Urine pH 7.0 (5.0-9.0) Ur Specific [place] 1.015 (1.005-1.030) Urine Protein Negative (NEGATIVE) Urine Glucose (UA) Negative (NEGATIVE) Urine Ketones Negative (NEGATIVE) Urine Occult Blood Negative (NEGATIVE) Urine Nitrite Negative (NEGATIVE) Urine Bilirubin Negative (NEGATIVE) Urine Urobilinogen 0.2 (0.2-1.0) mg/dL Ur Leukocyte Esterase Trace H (NEGATIVE) Meds: Medications Generic Name Dose Route Start Last Admin Trade Name Freq PRN Reason Stop Dose Admin Sodium Chloride 10 ml 01/07/21 13:59 Sodium Chloride 0.9% 10 Ml Syringe FLUSH ASDIRECTED PRN Keep Vein Open - Radiology Interpretation Free Text/Narrative:: XR Chest: no acute process, see Rad. report. - Re-Assessments/Exams Free Text/Narrative Re-Assessment/Exam: 01/07/21 14:40 On reassessment pt is symptom free. No acute EKG changes, no troponin elevation. I thinks the pt's self assessment of anxiety attack is correct, and I plan to d/c her home. No treatment or intervention needed at this time. Pt encouraged to f/u in clinic if stress and anxiety is becoming a recurring problem. Departure - Departure Time of Disposition: 15:43 Disposition: Home, Self-Care 01 Condition: Good Clinical Impression: Acute stress reaction, Anxiety attack - Discharge Information *PRESCRIPTION DRUG MONITORING PROGRAM REVIEWED*: Not Applicable *COPY OF PRESCRIPTION DRUG MONITORING REPORT IN PATIENT VICKI: Not Applicable Instructions: Managing Stress, Adult, Managing Anxiety, Adult Forms: ED Department Discharge Additional Instructions: Rx: Lorazepam 0.5mg *Do not drive for eight hours after taking this medication. Follow up with your primary clinic provider if stress and/or anxiety is becoming a recurring problem. Return to ER if worse at any time. Sepsis Event Note (ED) - Focused Exam Vital Signs: Vital Signs Temp Pulse Resp BP Pulse Ox 01/07/21 14:30 78 17 131/61 98 01/07/21 14:20 70 19 132/64 97 01/07/21 14:15 96.9 F 73 18 134/65 99 - My Orders Last 24 Hours: My Active Orders 01/07/21 13:57 Blood Glucose Check, Bedside [RC] ONETIME 01/07/21 13:58 Peripheral IV Insertion Adult [OM.PC] Stat 01/07/21 13:59 Peripheral IV Care [RC] . DIRECTED Sodium Chloride 0.9% [Saline Flush] 10 ml FLUSH ASDIRECTED PRN 01/07/21 15:25 CULTURE URINE [RM] Stat UA W/MICROSCOPIC [URIN] Stat - Assessment/Plan Last 24 Hours: My Active Orders 01/07/21 13:57 Blood Glucose Check, Bedside [RC] ONETIME 01/07/21 13:58 Peripheral IV Insertion Adult [OM.PC] Stat 01/07/21 13:59 Peripheral IV Care [RC] . DIRECTED Sodium Chloride 0.9% [Saline Flush] 10 ml FLUSH ASDIRECTED PRN 01/07/21 15:25 CULTURE URINE [RM] Stat UA W/MICROSCOPIC [URIN] Stat
[2021-01-07] MEDS ORDERED: Sodium Chloride 0.9% 10 ML Syringe FLUSH PRN (13:59)
[2021-01-07 14:31] LABS: ANION GAP 12.9 mEq/L (7-13); CHLORIDE,CL 97 mmol/L (98-107); SODIUM,NA 135 mmol/L (136-145)
--- NOTE | 2021-01-07 14:54 | CR ---
EXAMINATION: Chest 1V Frontal SEX: Female AGE: 75 years CLINICAL HISTORY: 75-year-old female near syncopal episode. Comparison exam 26 October 2020 "no acute findings". Interpretation: No new cardiovascular abnormality i.e. negative exam.. Necklace foreign body. External cardiac tech leads. Normal cardiac silhouette (size and configuration). No pulmonary vascular congestion, cephalization of flow, alveolar edema or dependent pleural effusion. No lung mass or hilar lymphadenopathy. Normal midline tracheal bronchial airway. Chronic disc disease and arthritic reactive changes dorsal spine. No alveolar infiltrates, air bronchograms or peripheral "groundglass" interstitial lung densities. No pneumothorax or pneumomediastinum. No free subdiaphragmatic air.
== END 2021-01-07 15:55 | disposition home or self-care (01) ==
LOC: DL.ED 13:52
DX: F41.9 Anxiety disorder, unspecified (principal); F43.0 Acute stress reaction; E11.40 Type 2 diabetes mellitus with diabetic neuropathy, unspecified; Z79.899 Other long term (current) drug therapy; Z86.73 Personal history of transient ischemic attack (TIA), and cerebral infarction without residual deficits
CPT/HCPCS: 36415; 71045; 80053; 81001; 82947; 84484; 85025; 87086; 93005; 99285-25

== ENCOUNTER 2021-03-31 06:04 | Day surgery (SDC) | payer BC, OTHER ==
[~2021-03-31 06:04] MED LIST: Dextrose 5%-0.45% NaCl 1,000 ML IV SCH; Sodium Chloride 0.9% 10 ML Syringe FLUSH PRN
[2021-03-31] MEDS ORDERED: Midazolam 1 MG/ML 2 ML SDV IV ONE ×2 (06:05→07:28)
[2021-03-31] MEDS ORDERED: fentaNYL 100 MCG/2 ML SDV IV ONE ×3 (06:05→07:28)
[2021-03-31] MEDS ORDERED: fentaNYL 100 MCG/2 ML SDV ONE (06:12)
[2021-03-31] MEDS ORDERED: Midazolam 1 MG/ML 2 ML SDV ONE (06:12)
[2021-03-31] MEDS ORDERED: Sodium Chloride 0.9% 10 ML Syringe FLUSH SCH (09:00)
== END 2021-03-31 09:45 | disposition home or self-care (01) ==
LOC: DL.ENDO 06:04
PROVIDERS: ATTEND Internal Medicine Gastroenterology
DX: K31.89 Other diseases of stomach and duodenum (principal); K31.A0 Gastric intestinal metaplasia, unspecified; K25.9 Gastric ulcer, unspecified as acute or chronic, without hemorrhage or perforation; K22.2 Esophageal obstruction; K21.9 Gastro-esophageal reflux disease without esophagitis; E11.9 Type 2 diabetes mellitus without complications; Z90.49 Acquired absence of other specified parts of digestive tract; Z98.890 Other specified postprocedural states; Z86.16 Personal history of COVID-19; Z86.73 Personal history of transient ischemic attack (TIA), and cerebral infarction without residual deficits; E78.00 Pure hypercholesterolemia, unspecified; Z01.812 Encounter for preprocedural laboratory examination; Z20.822 Contact with and (suspected) exposure to COVID-19
CPT/HCPCS: 43239; 87077; 87635; J2250; J3010; J7042; U0002

== ENCOUNTER 2021-04-02 05:53 | Day surgery (SDC) | payer BC, OTHER ==
[~2021-04-02 05:53] MED LIST changes: -Dextrose 5%-0.45% NaCl 1,000 ML IV SCH; +Midazolam 1 MG/ML 2 ML SDV ONE; -Sodium Chloride 0.9% 10 ML Syringe FLUSH PRN; +Sodium Chloride 0.9% 10 ML Syringe FLUSH SCH; +fentaNYL 100 MCG/2 ML SDV ONE
[2021-04-02] MEDS ORDERED: Midazolam 1 MG/ML 2 ML SDV IV ONE ×4 (05:54→07:44)
[2021-04-02] MEDS ORDERED: fentaNYL 100 MCG/2 ML SDV IV ONE ×3 (05:54→07:40)
[2021-04-02] MEDS ORDERED: Dextrose 5%-0.45% NaCl 1,000 ML IV SCH (06:00)
[2021-04-02] MEDS ORDERED: Sodium Chloride 0.9% 10 ML Syringe FLUSH PRN (06:00)
== END 2021-04-02 10:06 | disposition home or self-care (01) ==
LOC: DL.ENDO 05:53
PROVIDERS: ATTEND Internal Medicine Gastroenterology
DX: K62.5 Hemorrhage of anus and rectum (principal); K64.8 Other hemorrhoids; K64.4 Residual hemorrhoidal skin tags; E11.9 Type 2 diabetes mellitus without complications; E78.5 Hyperlipidemia, unspecified; Z90.49 Acquired absence of other specified parts of digestive tract; Z86.16 Personal history of COVID-19; Z80.0 Family history of malignant neoplasm of digestive organs; Z86.73 Personal history of transient ischemic attack (TIA), and cerebral infarction without residual deficits
CPT/HCPCS: 45378; J2250; J3010; J7042

== ENCOUNTER 2021-05-30 18:04 | Emergency (ER) | payer BC, OTHER ==
[2021-05-30 18:53] LABS: PTT,PARTIAL THROMBOPLSTIN TIME 25.5 SEC (22.0-34.0)
[2021-05-30 18:56] LABS: ANION GAP 14.3 mEq/L (7-13); CHLORIDE,CL 96 mmol/L (98-107); SODIUM,NA 131 mmol/L (136-145)
[2021-05-30] MEDS ORDERED: Acetaminophen 325 MG Tab PO ONE (19:57)
== END 2021-05-30 20:17 | disposition home or self-care (01) ==
LOC: DL.ED 18:04
DX: G44.219 Episodic tension-type headache, not intractable (principal); F41.9 Anxiety disorder, unspecified; J01.00 Acute maxillary sinusitis, unspecified; E11.9 Type 2 diabetes mellitus without complications; I10 Essential (primary) hypertension; Z86.73 Personal history of transient ischemic attack (TIA), and cerebral infarction without residual deficits; Z79.899 Other long term (current) drug therapy; Z86.16 Personal history of COVID-19; Z87.891 Personal history of nicotine dependence
CPT/HCPCS: 36415; 70450; 80053; 81003; 84484; 85025; 85610; 85730; 93005; 93010; 99284; 99285-25; A9270-GY